=== PATIENT | female | born 1985 | race Hispanic/Latino ===

== ENCOUNTER 2023-03-16 22:54 | Emergency (ER) | payer OTHER ==
[~2023-03-16] VITALS: Ht 167.6 cm; Wt 60.3 kg
[2023-03-16 23:20] LABS: BASOPHILS % (AUTO) 0.3 % (0.0-5.0); EOSINOPHILS % (AUTO) 2.3 % (0.0-8.0); HEMATOCRIT 42.9 % (36-48); LYMPHOCYTES % (AUTO) 25.9 % (21.0-51.0); MEAN CORPUSCULAR HEMOGLOBIN 27.5 pg (27.0-33.0); MEAN CORPUSCULAR HGB CONC 32.6 g/dL (32.0-36.0); MEAN CORPUSCULAR VOLUME 84.1 fL (79-99); MONOCYTES % (AUTO) 11.7 % (3.0-13.0); NEUTROPHILS % (AUTO) 59.5 % (40.0-77.0); PLATELET COUNT (AUTO) 219 K/uL (130-400); RED CELL DISTRIBUTION WIDTH 12.5 % (11.0-15.5); WHITE BLOOD COUNT (AUTO) 6.2 K/uL (4.8-10.8)
[2023-03-16 23:27] LABS: BILIRUBIN,URINE NEGATIVE (NEGATIVE); COLOR,URINE YELLOW (YELLOW); GLUCOSE, URINE (UA) NEGATIVE (NEGATIVE); KETONES,URINE 20 mg/dL (NEGATIVE); LEUKOCYTE ESTERASE ,URINE NEGATIVE Leu/uL (NEGATIVE); NITRATE,URINE NEGATIVE (NEGATIVE); OCCULT BLOOD,URINE LARGE (NEGATIVE); PROTEIN,URINE 20 mg/dL (NEGATIVE); UROBILINOGEN,URINE 0.2 mg/dL (0.2-1.0)
[2023-03-16 23:28] LABS: APPEARANCE,URINE SLIGHTLY CLOUDY (CLEAR)
[2023-03-16] MEDS ORDERED: ONDANSETRON 4MG INJ IVP ONE (23:30)
[2023-03-16] MEDS ORDERED: 0.9%NACL 1000ML 1,000 ML IV SCH (23:30)
[2023-03-16 23:31] LABS: BACTERIA,URINE RARE /HPF (None Seen); MUCUS,URINE MOD LPF (None Seen); RBC,URINE 51-100 /HPF (0-1); SQUAMOUS EPITHELIAL CELL,UR MANY /HPF (0-2)
[2023-03-16 23:31] LABS: CREATININE 0.8 mg/dL (0.5-1.5); POTASSIUM 3.1 mmol/L (3.5-5.1)
[2023-03-16 23:35] LABS: ALBUMIN 3.8 g/dL (3.5-5.0); TOTAL PROTEIN, SERUM 7.8 g/dL (6.0-8.3)
[2023-03-16] MEDS ORDERED: KETOROLAC 15MG/ML VIAL (15MG/ML) ONE (23:51)
[2023-03-16] MEDS ORDERED: KCL 20 MEQ ERTAB PO ONE (23:54)
[2023-03-17] MEDS ORDERED: KCL 20 MEQ ERTAB PO ONE
[2023-03-17] MEDS ORDERED: KETOROLAC 15MG/ML VIAL (15MG/ML) IV ONE
[2023-03-17 00:08] VITALS: BP 110/67
[2023-03-17] MEDS ORDERED: IBUP-2070 PO (00:29)
[2023-03-17] MEDS ORDERED: ONDA4TAB10 PO (00:29)
== END 2023-03-17 00:35 | disposition home or self-care (01) ==
LOC: EDH 22:54
DX: K52.9 Noninfective gastroenteritis and colitis, unspecified (principal); E86.0 Dehydration; Z88.2 Allergy status to sulfonamides
CPT/HCPCS: 99284; 96374; 96361; 96375; 80053; 83690; 85025; 81001; 81025; 36415; J7030; J2405; J1885